=== PATIENT | female | born 2000 | race Caucasian/White ===

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

== ENCOUNTER 2020-04-11 13:08 | Emergency (ER) | payer MEDICAID ==
[~2020-04-11] VITALS: Ht 154.9 cm; Wt 125.0 kg
[~2020-04-11 13:08] MED LIST: SULF1TAB35 PO
--- NOTE | 2020-04-11 13:43 | ED Lower Extremity ---
General Chief Complaint: Lower Extremity Stated Complaint: R ANKLE INJ Nursing Triage Note: AMB TO ED REPORTS YESTERDAY WAS JUMPING OFF A ROCK INTO WATER GO R FOOT CAUGHT IN ROCK AFTER JUMPIN C/O PAIN WHEN WALKING. Nursing Sepsis Screen: No Definite Risk Source: patient Exam Limitations: no limitations History of Present Illness Date Seen by Provider: Apr 11, 2020 Time Seen by Provider: 13:33 Initial Comments 20-year-old female who presents to the emergency room with complaints of right ankle pain after jumping into water and her foot became caught in a rock. She reports pain with walking today. No evidence of soft tissue injury noted on the exam. No abrasions, redness, or lacerations. No swelling noted. Normal capillary refill and distal pulses present. Onset: just prior to arrival Pain/Injury Location: right ankle Allergies and Home Medications Allergies Coded Allergies: No Known Drug Allergies (Unverified , 05/02/17) Home Medications Sulfamethoxazole/Trimethoprim 1 Each Tablet, 1 EACH PO BID Prescribed by: GENOVEVA ALBA on 02/26/18 5796 Patient Home Medication List Home Medication List Reviewed: Yes Review of Systems Constitutional: see HPI; No chills, No fever Musculoskeletal: see HPI, joint pain (right ankle pain) All Other Systems Reviewed Negative Unless Noted: Yes Past Cxnzvti-Wffvsi-Ipkzlx Hx Past Med/Social Hx: Reviewed Nursing Past Med/Soc Hx Patient Social History Alcohol Use: Occasionally Uses Recreational Drug Use: No Smoking Status: Current Everyday Smoker Type Used: Cigarettes 2nd Hand Smoke Exposure: Yes Recent Foreign Travel: No Contact w/Someone Who Travel: No Recent Infectious Disease Expo: No Recent Hopitalizations: No Past Medical History Surgeries: No Respiratory: No Cardiac: No Neurological: No Genitourinary: No Gastrointestinal: No Musculoskeletal: No Endocrine: No Integumentary: No Family Medical History Reviewed Nursing Family Hx Physical Exam Vital Signs Vital Signs - First Documented 04/11/20 13:12 Temp 36.7 Pulse 92 Resp 18 B/P (MAP) 145/90 (108) Pulse Ox 99 O2 Delivery Room Air Capillary Refill : Less Than 3 Seconds Height, Weight, BMI Height: 5'1.00" Weight: 240lbs. 0oz. 108.018864do; 52.00 BMI Method:Stated General Appearance: WD/WN, no apparent distress Cardiovascular: normal peripheral pulses, regular rate, rhythm, no edema, no gallop, no JVD, no murmur Respiratory: chest non-tender, lungs clear, normal breath sounds, no respiratory distress, no accessory muscle use Ankles: bilateral ankle normal range of motion; right ankle pain Neurologic/Tendon: normal sensation, normal motor functions, normal tendon functions, responds to pain, no evidence tendon injury Neurologic/Psychiatric: alert, normal mood/affect, oriented x 3 Skin: normal color, warm/dry Progress/Results/Core Measures Results/Orders My Orders Orders - WILL DALE Ankle, Right, 3 Views (04/11/20 13:25) Vital Signs/I&O 04/11/20 04/11/20 13:12 14:13 Temp 36.7 36.7 Pulse 92 92 Resp 18 18 B/P (MAP) 145/90 (108) 145/90 (108) Pulse Ox 99 99 O2 Delivery Room Air Blood Pressure Mean: 108 Diagnostic Imaging Comments [facility] [place] NAME: CHICASRADHA MED REC#: [id number] PT STATUS: REG ER : 2000 PHYSICIAN: WILL DALE ADMIT DATE: 04/11/20/ER Draft Date of Exam:04/11/20 ANKLE, RIGHT, 3 VIEWS INDICATION: Fall. Ankle stuck between rocks and water fall. FINDINGS: 3 views. Ankle mortise is in good alignment. Joint spaces well-maintained. Articulating surfaces are smooth. There are no fractures. Calcaneus and talus appear normal. There is soft tissue swelling over the lateral malleolus. IMPRESSION: Soft tissue swelling with no evidence of fractures or dislocation. Dictated on workstation # [id number] Dict: 04/11/20 1350 Trans: 04/11/20 1352 [employer] [facility] [id number] Interpreted by: BLESSING MCNEAL MD Electronically signed by: Reviewed: Reviewed by Me Departure Impression Primary Impression: Sprain and strain of ankle Disposition: 01 HOME, SELF-CARE Condition: Stable/Unchanged Departure-Patient Inst. Decision time for Depature: 14:04 Referrals: [facility] (PCP/Family) Primary Care Physician Patient Instructions: Ankle Sprain (DC), Ligament Injuries in the Knee (DC) Add. Discharge Instructions: Ice to the sore areas at 20 minute intervals. You may use ibuprofen and Tylenol as needed for pain relief. Rest the ankle as much as possible. Franco bandage as needed for extra support. Crutches as needed. Follow-up with your primary care provider within 1 week for recheck. Return back to the emergency room for worsening symptoms or concerns as needed. All discharge instructions reviewed with patient and/or family. Voiced understanding. WILL DALE Apr 11, 2020 13:43
--- NOTE | 2020-04-11 13:52 | Diagnostic Imaging Report ---
INDICATION: Fall. Ankle stuck between rocks and water fall. FINDINGS: 3 views. Ankle mortise is in good alignment. Joint spaces well-maintained. Articulating surfaces are smooth. There are no fractures. Calcaneus and talus appear normal. There is soft tissue swelling over the lateral malleolus. IMPRESSION: Soft tissue swelling with no evidence of fractures or dislocation. Dictated by: Dictated on workstation # [id number]
[2020-04-11 14:13] VITALS: BP 145/90
== END 2020-04-11 14:12 | disposition home or self-care (01) ==
LOC: EDUNIT# 13:08 → ER 13:09
DX: S93.401A Sprain of unspecified ligament of right ankle, initial encounter (principal); W23.1XXA Caught, crushed, jammed, or pinched between stationary objects, initial encounter; Y93.39 Activity, other involving climbing, rappelling and jumping off; F17.210 Nicotine dependence, cigarettes, uncomplicated
CPT/HCPCS: 73610

== ENCOUNTER 2020-09-30 17:15 | Emergency (ER) | payer MEDICAID ==
[~2020-09-30] VITALS: Ht 154.9 cm; Wt 100.0 kg
[2020-09-30 17:21] VITALS: BP 142/86
--- NOTE | 2020-09-30 17:24 | ED EENT ---
History of Present Illness General Stated Complaint: L EYE IRRITATION Source: patient Exam Limitations: no limitations History of Present Illness Date Seen by Provider: Sep 30, 2020 Time Seen by Provider: 17:33 Initial Comments To ER with left eye irritation. She felt like she had something in her eye last night but not sure what it was. She was able to get something out of her eye. She feels like it is still there today, she has some gooey drainage from the eye she states. She does not have pain but she has a annoying feeling in her eyes she states. Timing/Duration: this morning Severity: moderate Prearrival Treatment: no prearrival treatment Allergies and Home Medications Allergies Coded Allergies: No Known Drug Allergies (Unverified , 05/02/17) Home Medications Sulfamethoxazole/Trimethoprim 1 Each Tablet, 1 EACH PO BID Prescribed by: GENOVEVA ALBA on 02/26/18 031 Patient Home Medication List Home Medication List Reviewed: Yes Review of Systems Review of Systems Constitutional: see HPI Eyes: See HPI, Drainage Ears: No Symptoms Reported Nose: no symptoms reported Mouth: no symptoms reported Throat: no symptoms reported Respiratory: no symptoms reported Cardiovascular: no symptoms reported Musculoskeletal: no symptoms reported Past Pbhjyrt-Wnzalj-Bryzkb Hx Patient Social History Type Used: Cigarettes 2nd Hand Smoke Exposure: Yes Recent Foreign Travel: No Contact w/Someone Who Travel: No Recent Hopitalizations: No Past Medical History Surgeries: No Respiratory: No Cardiac: No Neurological: No Genitourinary: No Gastrointestinal: No Musculoskeletal: No Endocrine: No Integumentary: No Physical Exam Height, Weight, BMI Height: 5'1.00" Weight: 240lbs. 0oz. [id number]; 52.00 BMI Method:Stated General Appearance: WD/WN, no apparent distress Eyes: left eye conjunctival inflammation, left eye other (upon fluorescein staining there is no dye uptake to suggest corneal abrasion or ulcer. There is purulent discharge albeit a small amount as well as conjunctival inflammation. ); bilateral eye PERRL, bilateral eye EOMI Ears: bilateral ear auricle normal, bilateral ear canal normal, bilateral ear TM normal Neck: non-tender, full range of motion Cardiovascular: regular rate, rhythm, no murmur Respiratory: no respiratory distress, no accessory muscle use Neurologic/Psychiatric: alert, normal mood/affect, oriented x 3 Progress/Results/Core Measures Results/Orders My Orders Orders - GENOVEVA ALBA APRN Tetracaine 0.5% Ophth Meagan Sdv (Tetracai (09/30/20 17:30) Fluorescein Strips ([id number]) (09/30/20 17:30) Balanced Salt Irrigation Soln (Bss Irrig (09/30/20 17:30) Gentamicin 0.3% Ophth Solution (Garamyci (09/30/20 17:30) Medications Given in ED Current Medications Medications Dose Ordered Sig/Sussy Route Start Time Stop Time Status Last Admin Dose Admin Balanced Salt Solution 15 ml ONCE ONCE IR 09/30/20 17:30 09/30/20 17:31 DC 09/30/20 17:26 15 ML Fluorescein Sodium 1 mg ONCE ONCE OU 09/30/20 17:30 09/30/20 17:31 DC 09/30/20 17:26 1 MG Tetracaine HCl 4 ml ONCE ONCE OU 09/30/20 17:30 09/30/20 17:31 DC 09/30/20 17:26 4 ML Departure Impression Primary Impression: Conjunctivitis Disposition: 01 HOME, SELF-CARE Condition: Stable Departure-Patient Inst. Decision time for Depature: 17:32 [address]errals: [facility] – [place] (PCP/Family) Primary Care Physician Patient Instructions: Conjunctivitis ([place]) (DC) Add. Discharge Instructions: 1. Return to ER for any worsening. Follow-up with Dr. OLIVEIRA, the airset caster here in [place]. Call his office Friday morning to make an appointment to be seen. Use the antibiotic drops 2 drops every 2 hours while awake for the next 4 days. GENOVEVA ALBA APRN Sep 30, 2020 17:24
[2020-09-30] MEDS ORDERED: GENTAMICIN 0.3% OPHTH SOLN 5 ML OP SCH (17:30)
[2020-09-30] MEDS ORDERED: FLUORESCEIN (FLUOR-I-STRIPS) 1 MG STRP OU ONE (17:30)
[2020-09-30] MEDS ORDERED: TETRACAINE 0.5% OPHTH SOLN 4 ML BTL (SINGLE DOSE ONLY) OU ONE (17:30)
[2020-09-30] MEDS ORDERED: BSS 15 ML IR ONE (17:30)
== END 2020-09-30 17:41 | disposition home or self-care (01) ==
LOC: EDUNIT# 17:15 → ER 17:17
DX: H10.9 Unspecified conjunctivitis (principal); Z77.22 Contact with and (suspected) exposure to environmental tobacco smoke (acute) (chronic)
CPT/HCPCS: 99282